=== PATIENT | female | born 1955 | race Caucasian/White ===

== ENCOUNTER 2017-11-20 08:34 | Emergency (ER) | payer OTHER ==
[2017-11-20 08:40] VITALS: BP 118/53
--- NOTE | 2017-11-20 08:45 | EDPHY ---
H & P Time Seen by Provider: 11/20/17 08:44 HPI/ROS: CHIEF COMPLAINT: Right hip pain HISTORY OF PRESENT ILLNESS: Patient was at her mother's last night and tripped over a large metal sculpture of a rooster in the and landed on her right hip. She was able to use her mother's walker and get to the car and then use crutches today to get around. Pain is in the lateral right hip and proximal thigh, worse with movement and ambulation. Pain is minimal at rest. Does not radiate. Not associated with laceration or weakness or numbness in the foot or ankle. REVIEW OF SYSTEMS: Eye: no change in vision ENT: no sore throat Cardiac: No chest pain Pulmonary: Not short of breath Abdomen: Abdominal pain Musculoskeletal: HPI Skin: No laceration or bruising Neuro: No weakness or numbness in the foot Constitutional: no fever : No symptoms A comprehensive 10 point review of systems is otherwise negative aside from elements mentioned in the history of present illness. PAST MEDICAL HISTORY: Right total hip arthroplasty for arthritis, breast cancer Social history: Nonsmoker General Appearance: Alert and conversant, cooperative. Eyes: No scleral icterus. ENT, Mouth: Normal mucous membranes. Respiratory: Normal respiratory effort, breath sounds equal, lungs are clear to auscultation. Cardiovascular: Regular rate and rhythm. Gastrointestinal: Abdomen is soft and non tender. Neurological: Alert, face symmetric, normal motor and sensory in extremities. Specifically has normal motor and sensory in the right foot. Skin: Warm and dry, no rashes. No bruising over the right hip. Musculoskeletal: Pelvis is stable to palpation. She does not have any spinal tenderness. She has some lateral right hip tenderness but compartments are soft. No hip pain on the right with rotational or axial loading. Normal range of motion of the right knee. Psychiatric: Not agitated. Emergency Department course/MDM: X-rays of the right hip and femur ordered. Smoking Status: Never smoked Constitutional: Initial Vital Signs Temperature (C) 36.6 C 11/20/17 08:35 Heart Rate 82 11/20/17 08:35 Respiratory Rate 18 11/20/17 08:35 Blood Pressure 118/53 L 11/20/17 08:35 O2 Sat (%) 95 11/20/17 08:35 O2 Delivery Mode Room Air Allergies/Adverse Reactions: oxycodone Allergy (Verified 11/20/17 08:41) Home Medications: Medication Instructions Recorded NK [No Known Home Meds] 11/20/17 Medical Decision Making - Diagnostics Imaging Results: Imaging Impressions Femur X-Ray 11/20/17 08:52 Impression: No acute osseous findings. Hip X-Ray 11/20/17 08:52 Impression: No acute osseous findings. X-rays right hip and femur personally interpreted as negative for injury, prosthesis intact Imaging: I viewed and interpreted images myself Differential Diagnosis: Differential considered including but not limited to pelvic fracture, hip dislocation, prosthesis fracture, hip contusion. Departure - Departure Disposition: Home, Routine, Self-Care Clinical Impression: Contusion of right hip and thigh Qualifiers: Encounter type: initial encounter Qualified Code(s): S70.01XA - Contusion of right hip, initial encounter Condition: Good Instructions: Contusion in Adults (ED) Referrals: Katie Gay MD [Primary Care Provider] - As per Instructions
== END 2017-11-20 09:25 | disposition home or self-care (01) ==
DX: S70.01XA Contusion of right hip, initial encounter (principal); Z85.3 Personal history of malignant neoplasm of breast; W18.49XA Other slipping, tripping and stumbling without falling, initial encounter

== ENCOUNTER → 2018-06-14 | Outpatient (CLI) | payer OTHER | LOC: FIMAGING 08:38 | PROVIDERS: ATTEND Family Medicine | DX: J98.4 Other disorders of lung (principal) ==